=== PATIENT | male | born 1960 | race Caucasian/White ===

== ENCOUNTER → 2017-03-04 | Outpatient (CLI) | payer SELFPAY ==
[~2017-03-04] MED LIST: ASPIRIN81 M2 PO; MOTRIN600 MG PO; NORCO 7.5/321 TABLET PO
== END | disposition home or self-care (01) ==
LOC: RAD 08:32
DX: K76.0 Fatty (change of) liver, not elsewhere classified (principal)
CPT/HCPCS: 74178

== ENCOUNTER 2017-03-12 07:25 | Observation (INO) | payer SELFPAY ==
[~2017-03-12] VITALS: Ht 177.8 cm; Wt 105.4 kg
[2017-03-12 08:03] LABS: HEMATOCRIT 45.5 % (38.0-50.0); MCH 28.9 PG (29.0-34.0); MCHC 34.9 G/DL (30.0-36.0); MCV 82.6 FL (86-99); MEAN PLAT.VOLUME 10.2 uM^3 (9.0-12.4); PLATELET COUNT 233 K/uL (156-360); RBC DIS.WIDTH-CV 12.6 % (11.8-14.6); RBC DIS.WIDTH-SD 38.2 % (39-53); RED BLOOD COUNT 5.51 M/uL (4.00-5.50); WHITE BLOOD COUNT 7.5 K/uL (4.1-10.2)
[2017-03-12 08:12] LABS: CHLORIDE 108 mEq/L (99-109); POTASSIUM 4.5 mEq/L (3.7-5.4); SODIUM 140 mEq/L (136-147)
[2017-03-12 08:14] LABS: GLUCOSE 132 mg/dL (70-99)
[2017-03-12 08:15] LABS: ANION GAP 10 MEQ/L (2-14)
[2017-03-12 08:18] LABS: GFR ESTIMATE (CALCULATED) > 59 mL/min/
[2017-03-12 08:19] LABS: UREA NITROGEN (BUN) 19 mg/dL (9-23)
[2017-03-12 08:24] LABS: TROP-I INTERPRETATION NEGATIVE; TROPONIN-I < 0.01 ng/mL (0.0-0.30)
[2017-03-12 09:43] LABS: TOTAL BILIRUBIN 0.5 mg/dL (0.0-1.0)
[2017-03-12 09:44] LABS: ALKALINE PHOSPHATASE 53 IU/L (3-129)
[2017-03-12 09:47] LABS: DIRECT BILIRUBIN 0.2 mg/dL (0.0-0.3)
[2017-03-12 09:48] LABS: LIPASE 21 U/L (1.0-51.0)
[2017-03-12] MEDS ORDERED: SINGULAIR10 MG PO (10:45)
[2017-03-12] MEDS ORDERED: PROTONIX40 MG PO (10:45)
[2017-03-12] MEDS ORDERED: LO-DOSE ASPIRIN81 M1 PO (10:45)
[2017-03-12] MEDS ORDERED: PRAVACHOL40 MG PO (10:46)
[2017-03-12] MEDS ORDERED: KENALOG,ARISTOC80 GM TP (10:47)
[2017-03-12] MEDS ORDERED: CLOBETASOL PROP50 ML TP (10:48)
[2017-03-12 11:46] VITALS: BP 138/72
[2017-03-12 12:35] LABS: TROP-I INTERPRETATION NEGATIVE; TROPONIN-I < 0.01 ng/mL (0.0-0.30)
[2017-03-12 15:59] VITALS: BP 116/61
[2017-03-12 17:15] LABS: TROP-I INTERPRETATION NEGATIVE; TROPONIN-I < 0.01 ng/mL (0.0-0.30)
[2017-03-12 20:00] VITALS: BP 126/68
[2017-03-13] VITALS: BP 117/60
[2017-03-13 04:00] VITALS: BP 125/57
[2017-03-13 07:55] VITALS: BP 134/77
== END 2017-03-13 11:13 | disposition home or self-care (01) ==
LOC: EME 07:25 → EDOF 10:54 → 5WEST 10:54 → EDOF 10:54 → 5WEST 11:40
PROVIDERS: Hospitalist
DX: R07.2 Precordial pain (principal); R10.9 Unspecified abdominal pain; I25.10 Atherosclerotic heart disease of native coronary artery without angina pectoris; Z95.1 Presence of aortocoronary bypass graft; E78.5 Hyperlipidemia, unspecified; Z79.82 Long term (current) use of aspirin
CPT/HCPCS: 71020; 74177; 80048; 80076; 83690; 84484; 85027; 93005; 99281; 99285; G0378; J1200; J1885; J2765; J3010; J7030

== ENCOUNTER 2017-03-27 09:38 | Day surgery (SDC) | payer SELFPAY ==
[~2017-03-27] VITALS: Ht 180.3 cm; Wt 98.0 kg
[~2017-03-27 09:38] MED LIST changes: +CLOBETASOL PROP50 ML TP; +KENALOG,ARISTOC80 GM TP; +LO-DOSE ASPIRIN81 M1 PO; +PRAVACHOL40 MG PO; +PROTONIX40 MG PO; +SINGULAIR10 MG PO
[2017-03-27 10:00] VITALS: BP 132/77
[2017-03-27] MEDS ORDERED: PERCOCET 5/31 TABLET PO (15:13)
[2017-03-27] MEDS ORDERED: AUGMENTIN875 MG PO (15:13)
[2017-03-27 17:15] VITALS: BP 143/82
[2017-03-27 18:20] VITALS: BP 140/94
== END 2017-03-27 18:35 | disposition home or self-care (01) ==
LOC: SDC
PROC: 0WBH4ZX Excision of Retroperitoneum, Percutaneous Endoscopic Approach, Diagnostic (ICD-10-PCS; principal; 2017-03-27)
DX: R19.05 Periumbilic swelling, mass or lump (principal); K66.0 Peritoneal adhesions (postprocedural) (postinfection); I25.10 Atherosclerotic heart disease of native coronary artery without angina pectoris; I10 Essential (primary) hypertension; K21.9 Gastro-esophageal reflux disease without esophagitis; Z95.1 Presence of aortocoronary bypass graft; Z79.82 Long term (current) use of aspirin; R94.31 Abnormal electrocardiogram [ECG] [EKG]
CPT/HCPCS: 87070; 87075; 87205; 88305; J0330; J0690; J1100; J1170; J1885; J2405; J2710; J2765; J3010

== ENCOUNTER 2017-11-26 06:45 | Emergency (ER) | payer OTHER ==
[~2017-11-26] VITALS: Ht 180.3 cm; Wt 109.5 kg
[~2017-11-26 06:45] MED LIST changes: +AUGMENTIN875 MG PO; +PERCOCET 5/31 TABLET PO
[2017-11-26 07:18] LABS: BASOPHIL (%) 0.3 % (0-1); EOSINOPHIL (%) 4.2 % (0-5); EOSINOPHIL COUNT 0.3 K/uL (0-0.3); HEMATOCRIT 45.7 % (38.0-50.0); HEMOGLOBIN 16.1 G/DL (12.5-16.6); IMMATURE GRANULOCYTE (%) 0.5 % (0.0-0.7); LYMPHOCYTE (%) 17.3 % (15-42); MCH 29.4 PG (29.0-34.0); MCHC 35.2 G/DL (30.0-36.0); MCV 83.5 FL (86-99); MONOCYTE (%) 8.8 % (3-12); MONOCYTE COUNT 0.5 K/uL (0-0.8); NEUTROPHIL (%) 68.9 % (45-76); NEUTROPHIL COUNT 4.1 K/uL (1.8-6.4); PLATELET COUNT 199 K/uL (156-360); RBC DIS.WIDTH-CV 12.7 % (11.8-14.6); RBC DIS.WIDTH-SD 38.8 % (39-53); RED BLOOD COUNT 5.47 M/uL (4.00-5.50)
[2017-11-26 07:41] LABS: TROP-I INTERPRETATION NEGATIVE; TROPONIN-I < 0.01 ng/mL (0.0-0.30)
[2017-11-26 07:42] LABS: ALBUMIN 3.9 G/DL (3.2-4.8); CHLORIDE 109 MEQ/L (99-109); SODIUM 140 MEQ/L (136-147); TOTAL BILIRUBIN 0.9 MG/DL (0.0-1.0)
[2017-11-26 07:48] LABS: ALKALINE PHOSPHATASE 58 IU/L (3-129); ALT (GPT) 82 IU/L (3-49); AST (GOT) 27 IU/L (2-34); CREATININE 0.9 MG/DL (0.6-1.3); GFR ESTIMATE (CALCULATED) > 59 mL/min/ (58.99-99999); GLUCOSE 136 mg/dL (70-99); TOTAL PROTEIN 6.7 G/DL (6.4-8.3); UREA NITROGEN (BUN) 16 mg/dL (9-23)
[2017-11-26 09:51] LABS: TROP-I INTERPRETATION NEGATIVE; TROPONIN-I < 0.01 ng/mL (0.0-0.30)
[2017-11-26 11:17] VITALS: BP 133/85
== END 2017-11-26 11:27 | disposition home or self-care (01) ==
LOC: EME 06:45
PROVIDERS: Emergency Medicine
DX: R04.2 Hemoptysis (principal); G89.18 Other acute postprocedural pain; R10.9 Unspecified abdominal pain; K21.9 Gastro-esophageal reflux disease without esophagitis; E78.5 Hyperlipidemia, unspecified; Z90.49 Acquired absence of other specified parts of digestive tract
CPT/HCPCS: 71020; 71275; 74177; 80053; 84484; 85025; 85379; 86850; 86900; 86901; 93005; 99281; 99285; J7030